=== PATIENT | female | born 1995 | race Caucasian/White ===

== ENCOUNTER 2022-02-10 17:18 | Emergency (ER) | payer BC, SELFPAY ==
[2022-02-10 17:37] VITALS: BP 119/64; PULSE 75; RESP 18; TEMP 36.6; O2SAT 100; BMI 22.5
--- NOTE | 2022-02-10 18:36 | ED.URI ---
HPI - URI/Sore Throat General Date Seen: 02/10/22 Chief Complaint: Cough Stated Complaint: Sore Throat, Cough Time Seen by Provider: 02/10/22 17:24 Source: patient Mode of arrival: ambulatory Limitations: no limitations History of Present Illness HPI Narrative: Patient is a very nice 18-year-old female presents with her son for evaluation of a cough and sore throat she has had for approximately 1 month. Vacillated up and down, it is associated with lots of nasal discharge worse at night. She has had no fevers with this, she feels a little bit winded when she walks around. She has no past history of any pulmonary issues such as asthma, denies any fevers chills or sweats, no abdominal pain nausea vomiting rashes diarrhea or anything else. Taking at least 2 COVID tests over the cup last couple weeks and had both been negative at home. Her son has similar symptoms. She has tried some [id number] cold medications with really no improvement. MD elicited complaint: cough and sore throat Onset (ago): week(s) Consistency: intermittent Severity: moderate Description of mucous: clear Able to tolerate fluids by mouth: Yes Exacerbating factors: nothing, exertion and deep breaths Relieving factors: cough suppressant, rest and gargling Context: sick contacts Associated symptoms: denies other symptoms Treatments prior to arrival: none Related Data Home Medications Medication Instructions Recorded Confirmed No Known Home Medications 02/10/22 02/10/22 Allergies Allergy/AdvReac Type Severity Reaction Status Date / Time codeine Allergy Severe Anaphylaxis Verified 02/10/22 17:41 Review of Systems Status of ROS: Reports: 6 or more systems reviewed and unremarkable except as noted in History and below [facility] Social History Smoking Status: Never smoker Do you use any of these nicotine containing products: None Second hand tobacco smoke exposure: No How often do you have a drink containing alcohol: never How often do you have six or more drinks on one occasion: Never AUDIT-C Alcohol total score: 0 Non-prescribed substance use: denies use service: No Exam Narrative: Exam Narrative: Patient is no apparent distress speaking normally to me. Her vital signs are all within normal limits her voice is a little bit more raspy she says. Her pupils equal round reactive to light there is no scleral icterus redness or TMs external canals are normal her oropharynx is reddened. There is no real tonsillar enlargement. There is a posterior exudate notable. She has bilateral turbinate hypertrophy bilaterally with clearish yellowish discharge. When I review her nasal mucosa. Neck is supple full range of motion without meningismus there is lymphadenopathy anterior chains bilaterally. Her chest is good air entry bilaterally but on forced expiration she does have a few wheezes noted. Heart sounds no clicks murmurs or gallops her abdomen is soft there is no guarding, no edema of her lower extremities, no swelling negative Homans sign. Const: Vital Signs, click to edit/add: Vital Signs - 24 hr 02/10/22 17:37 Temperature 97.8 F Pulse Rate [Pulse Oximeter] 75 Respiratory Rate 18 Blood Pressure [Ri t Upper Arm] 119/64 Pulse Oximetry 100 Documenting provider has reviewed patient's vital signs: yes Course Vital Signs Vital signs: Initial Vital Signs Temperature 97.8 F 02/10/22 17:37 Temperature Source Temporal Artery Scan 02/10/22 17:37 Pulse Rate 75 02/10/22 17:37 Respiratory Rate 18 02/10/22 17:37 Blood Pressure 119/64 02/10/22 17:37 Blood Pressure Mean 82 02/10/22 17:37 Blood Pressure Position Supine 02/10/22 17:37 Pulse Oximetry 100 02/10/22 17:37 Oxygen Delivery Method 02/10/22 17:37 Vital Signs Temperature 97.8 F 02/10/22 17:37 Pulse Rate 75 02/10/22 17:37 Respiratory Rate 18 02/10/22 17:37 Blood Pressure 119/64 02/10/22 17:37 Pulse Oximetry 100 02/10/22 17:37 Temperature 97.8 F 02/10/22 17:37 Pulse Rate 75 02/10/22 17:37 Respiratory Rate 18 02/10/22 17:37 Blood Pressure 119/64 02/10/22 17:37 Pulse Oximetry 100 02/10/22 17:37 MDM - URI/Sore Throat MDM Narrative Medical decision making narrative: I think it be reasonable at this point to do a strep swab, she has had a couple COVID test which were negative, other possibilities sinusitis, she has no other symptoms to suggest anything more severe. She was comfortable with this plan. Discussed with the mother that they strep swab was negative, at this point I think it would be reasonable to discharge her, I do think however she has acute sinusitis given her coughing, discharging examination. Amoxicillin would be indicated given the length the time of this. She is in agreement. We also talked with symptomatic measures Tylenol ibuprofen in the use of decongestants, they can also consider using Flonase which often times ENT will use with good success for this. If this continues to be an issue then I would recommend follow-up with ENT or consideration of other evaluation. Informed consent risks benefits given over medication. Differential Diagnosis Differential diagnosis: Likely upper respiratory infection, otitis media, sinusitis, viral infection and pharyngitis Medical Records Attestation: I reviewed the patient's medical records. Lab Data Attestation: I reviewed the patient's lab results. Labs: Lab Results 02/10/22 Range/Units 18:05 Group A Strep DNA NOT DETECTED (No Detected) Discharge Plan Discharge Clinical Impression: Sinusitis Qualifiers: Sinusitis location: maxillary Chronicity: acute Patient Disposition: Home, Self-Care Condition: Stable Instructions: Sinusitis (ED) Additional Instructions: Home rest use of medications as directed, decongestants are also helpful as your blood pressure was excellent, these can be purchased [id number] at the pharmacy. Another 0 [id number] medication is something like Flonase. Antibiotics prescribed, please take these for the full course. Tylenol and ibuprofen for the 1st couple days for the antibiotics start working is also suggested. Prescriptions: No Action No Known Home Medications 0RF Follow Up/Referrals: Qian Shi MD [Primary Care Provider] - Stand Alone Forms: [employer] Info Instructions
[2022-02-10 18:49] LABS: Strep A DNA Probe* NOT DETECTED (No Detected)
== END 2022-02-10 19:34 | disposition home or self-care (01) ==
PROVIDERS: Emergency Provider Family Medicine; PCP Family Medicine
DX: J01.00 Acute maxillary sinusitis, unspecified (principal)
CPT/HCPCS: 87651; 99282; 99283